=== PATIENT | female | born 1960 | race American Indian/Alaskan Native ===

== ENCOUNTER 2018-10-12 09:52 | Inpatient (IN) ==
[2018-10-08 12:00] LABS: Appearance,Urine CLEAR; Bacteria,Urine FEW /hpf (0); Bilirubin,Urine NEG (NEG); Color,Urine YELLOW; Glucose,Urine (UA) NEGATIVE (NEG); Leukocyte Esterase,Urine NEG /uL (NEG); Mucus,Urine MANY /hpf (0); Protein,Urine NEG (NEG); Specific Gravity,Urine 1.024 (1.000-1.035); Urine Blood 0.03 mg/dL (<0.03); Urine RBC 9 /hpf (0-1); Urine Squamous Epithelial Cell 4 /hpf (0-4); Urine WBC 1 /hpf (0-4)
[2018-10-08 12:27] LABS: Blood Urea Nitrogen 7 mg/dl (6-20)
[2018-10-08 12:31] LABS: Basophils # (Auto) 0.1 K/mcL (0.0-0.3); Basophils % (Auto) 0.8 % (0.0-2.0); Eosinophils # (Auto) 0.1 K/mcL (0.0-0.7); Eosinophils % (Auto) 1.5 % (0.0-7.0); Granulocytes % (Auto) 62.7 % (38.0-78.0); Lymphocytes # (Auto) 2.6 K/mcL (1.5-4.8); Lymphocytes % (Auto) 28.5 % (15.5-49.0); Mean Cell Volume 86.9 fL (80.0-100.0); Mean Corpuscular HGB Conc 32.6 g/dL (31.0-36.0); Monocytes # (Auto) 0.6 K/mcL (0.1-0.9); Monocytes % (Auto) 6.5 % (1.0-12.0); Platelet Count 253 K/mcL (140-440); RBC 4.83 M/mcL (4.00-5.20); Red Cell Distribution Width 13.3 % (11.5-14.5)
[2018-10-08 12:44] LABS: Hemoglobin A1C 6.1 % HGB (4.0-6.0)
[~2018-10-12 09:52] MED LIST: ACETAMINOPHEN 500 MG TABLET PO SCH; PREGABALIN 75 MG CAPSULE PO SCH; ceFAZolin 1 GM VIAL IV SCH; oxyCODONE 10 MG TAB.ER.12H PO SCH
[2018-10-12] MEDS ORDERED: DEXAMETHASONE 10 MG/ML VIAL IV ONE (12:15)
[2018-10-12] MEDS ORDERED: GLYCOPYRROLATE 0.2 MG/ML VIAL IV ONE (12:15)
[2018-10-12] MEDS ORDERED: TRANEXAMIC ACID 1,000 MG/10 ML VIAL IV ONE ×3 (12:15→14:11)
[2018-10-12] MEDS ORDERED: fentaNYL 250 MCG/5 ML VIAL IV ONE (12:15)
[2018-10-12] MEDS ORDERED: SUGAMMADEX SODIUM 200 MG/2 ML VIAL IV ONE (12:15)
[2018-10-12] MEDS ORDERED: ROCURONIUM 10 MG/ML ML IV ONE (12:15)
[2018-10-12] MEDS ORDERED: ONDANSETRON 4 MG/2 ML VIAL IV ONE (12:15)
[2018-10-12] MEDS ORDERED: MIDAZOLAM 5 MG/5 ML VIAL IV ONE (12:15)
[2018-10-12] MEDS ORDERED: SUCCINYLCHOLINE 20 MG/ML ML IV ONE (12:15)
[2018-10-12] MEDS ORDERED: KETAMINE 100 MG/ML ML IV ONE (12:15)
[2018-10-12] MEDS ORDERED: LIDOCAINE HCL/PF 100 MG/5 ML SYRINGE IV ONE (12:15)
[2018-10-12] MEDS ORDERED: HYDROmorphone 2 MG/ML VIAL IV ONE (12:15)
[2018-10-12] MEDS ORDERED: PROPOFOL 200 MG/20 ML VIAL IV ONE (12:15)
[2018-10-12] MEDS ORDERED: ESMOLOL 100 MG/10 ML VIAL IV ONE (12:15)
[2018-10-12] MEDS ORDERED: ROPIVACAINE HCL/PF 20 ML VIAL IJ ONE (12:15)
[2018-10-12] MEDS ORDERED: GENTAMICIN SULFATE 800 MG/20 ML VIAL IR ONE (12:48)
[2018-10-12] MEDS ORDERED: ONDANSETRON 4 MG/2 ML VIAL IV PRN ×2 (12:51→13:40)
[2018-10-12] MEDS ORDERED: METHOCARBAMOL 1,000 MG/10 ML VIAL IV PRN (12:51)
[2018-10-12] MEDS ORDERED: FLUMAZENIL 0.1 MG/ML ML IV PRN (12:51)
[2018-10-12] MEDS ORDERED: LACTATED RINGERS 250 ML IV PRN (12:51)
[2018-10-12] MEDS ORDERED: NALOXONE HCL 0.4 MG/ML VIAL IV PRN (12:51)
[2018-10-12] MEDS ORDERED: ACETAMINOPHEN 1,000 MG/100 ML BOTTLE IV ONE (12:51)
[2018-10-12] MEDS ORDERED: BENZOCAINE/MENTHOL 1 LOZENGE PO PRN ×2 (12:51→13:40)
[2018-10-12] MEDS ORDERED: IPRATROPIUM/ALBUTEROL 3 ML AMPUL.NEB NEB PRN (12:51)
[2018-10-12] MEDS ORDERED: MEPERIDINE 25 MG/ML SYRINGE IV PRN (12:51)
[2018-10-12] MEDS ORDERED: fentaNYL 100 MCG/2 ML VIAL IV PRN (12:51)
[2018-10-12] MEDS ORDERED: LACTATED RINGERS 1,000 ML IV SCH (13:00)
[2018-10-12] MEDS: 0.9 % SODIUM CHLORIDE 9 ML, KETOROLAC 30 MG, ROPIVACAINE HCL/PF 49.5 ML, EPINEPHrine 0.... IJ SCH (13:18)
[2018-10-12] MEDS ORDERED: FLEETS ADULT ENEMA PR PRN (13:40)
[2018-10-12] MEDS ORDERED: TEMAZEPAM 15 MG CAPSULE PO PRN (13:40)
[2018-10-12] MEDS ORDERED: oxyCODONE/APAP 5/325MG TABLET PO PRN (13:40)
[2018-10-12] MEDS ORDERED: ACETAMINOPHEN 325 MG TABLET PO PRN (13:40)
[2018-10-12] MEDS ORDERED: BISACODYL 10 MG SUPP.RECT PR PRN (13:40)
[2018-10-12] MEDS ORDERED: MAGNESIUM HYDROXIDE 30 ML ORAL.SUSP PO PRN (13:40)
[2018-10-12] MEDS ORDERED: HYDROmorphone 2 MG/ML VIAL IV PRN (13:40)
[2018-10-12] MEDS ORDERED: POLYETHYLENE GLYCOL 3350 17 GM PACKET PO PRN (13:40)
--- NOTE | 2018-10-12 13:40 | Brief Operative Note ---
Date of procedure: 10/12/18 Pre-op diagnosis: left shoulder rca and djd severe Procedure: left reverse tsa Grafts/Implants: Yes Anesthesia: GETA Complications: none Surgeon: Benson Luna Compensation And Benefits Advisor: Laz Clark Estimated blood loss (cc): 50 Specimens Removed/Pathology: none sent Condition: stable Disposition: PACU
--- NOTE | 2018-10-12 14:17 | Operative Note ---
DATE OF OPERATION: 10/12/2018 PREOPERATIVE DIAGNOSES: Left shoulder rotator cuff arthropathy, torn biceps, chronic torn rotator cuff. POSTOPERATIVE DIAGNOSES: Left shoulder rotator cuff arthropathy, torn biceps, chronic torn rotator cuff. PROCEDURE: Left reverse total shoulder. SURGEON: Benson Luna MD AIRPORT MAINTENANCE LABORER: Laz Clark PA-C ANESTHESIA: General LMA anesthesia. COMPLICATIONS: None. DESCRIPTION OF PROCEDURE: The patient was brought to the operating room and put to sleep with general LMA anesthesia. Once asleep, the patient had the left shoulder sterilely prepped and draped in the usual sterile fashion. A timeout was performed and we confirmed this as the operative site. Once we did this, we then placed Ioban over the skin. Preop antibiotics and tranexamic acid had been given. Initials recognized on this shoulder, we proceeded with the shoulder. After being sterilely prepped and draped we made a deltopectoral approach to the shoulder. Her anatomy was altered given her severe kyphosis. At this point we identified the deltopectoral interval and retracted the deltoid laterally, released the conjoined tendon from the capsule and retracted it medially. A Conklin retractor was placed over that the humeral head to retract the deltoid and then we released the subscap musculature. The biceps tendon had been torn. Any remnants of it were released. We irrigated thoroughly and then subluxed the humeral head anteriorly releasing the inferior capsule and protecting the axillary nerve at all times. We then released the capsule inferior on the glenoid neck, made our cutting guide at the junction of the humeral head anatomy at the anatomical neck region, cut at 20 degrees of retroversion and 135 degrees of inclination. Once done, we then placed a protective plate and subluxed the humerus posteriorly to the glenoid and performed a 360 degree capsular release and removal of the labrum around the glenoid. Once done, we then placed a central pin, reamed up to the size 36 and reamed to cancellous bone on the inferior 50%. We placed a 32 mm central screw with a 28 mm metaglene. A glenosphere measuring 36 mm with 2 mm of offset and 2 mm of eccentricity was placed. We irrigated thoroughly and tapped this into place. We then prepared the humerus, broaching up to the size 9 for a stem. We then trialed a size 9 and neutral poly. This seemed to fit very nicely, very stable through the full arc of motion. We irrigated thoroughly. At this point, we implanted a size 8 stem with a distal cement to countersink this up slightly to be able to countersink. We placed a standard thickness poly which was tapped into place after cutting the neck down to the level of the stem. We irrigated thoroughly and then reduced the humerus once more. This was very stable throughout the arc of motion. A small amount of cement was placed distally on the stem to keep it secured. We irrigated thoroughly. We then irrigated and injected the soft tissue with the post-inject formula for total joints. Once done, we then closed the deltopectoral interval with 2-0 Vicryl and closed the skin with 2-0 Vicryl and adhesive closure. The patient tolerated this well. She was placed in a regular Donjoy sling. RBH:arvind Job ID: [id number] Doc ID: [id number] Benson Luna MD
--- NOTE | 2018-10-12 15:57 | XRay Report ---
CLINICAL INFORMATION: Post-Op Total Shoulder COMPARISON: None. FINDINGS: Total shoulder prosthesis is anatomically aligned. Mild acromioclavicular degeneration noted. No osseous abnormality There is mild diffuse soft tissue swelling. IMPRESSION: Negative Interpreted and Authenticated by: Edil Odonnell 10/12/18
[2018-10-12] MEDS: 0.9 % SODIUM CHLORIDE 10 ML SYRINGE IV SCH ×2 (17:35→21:40)
[2018-10-12] MEDS: 0.45 % SODIUM CHLORIDE 1,000 ML IV SCH (17:58)
[2018-10-12] MEDS ORDERED: SENNOSIDES 1 TABLET PO SCH (21:00)
[2018-10-12] MEDS: ceFAZolin 1 GM VIAL IV SCH (21:30)
[2018-10-12] MEDS: DOCUSATE SODIUM 100 MG CAPSULE PO SCH (21:39)
[2018-10-13] MEDS: 0.45 % SODIUM CHLORIDE 1,000 ML IV SCH (02:06)
[2018-10-13] MEDS: ceFAZolin 1 GM VIAL IV SCH (05:41)
[2018-10-13] MEDS: 0.9 % SODIUM CHLORIDE 10 ML SYRINGE IV SCH (05:41)
--- NOTE | 2018-10-13 07:29 | Orthopedic Progress Note ---
Subjective Patient information: Note initiated : 10/13/18 at 7:28 am Service Date, if different from initiated Date: [] Patient: Aixa Diaz 58 y/o F admitted on 10/12/18 for Left Reverse Total Shoulder Arthroplasty. Chief Complaint: [Pt is stable this morning on post operative day 1 without any significant concerns or complaints. Patients vital signs have remained stable. Patients dressing is dry and is grossly intact from a neurovascular and motor standpoint. Patients 10 point ROS is otherwise negative. ] Objective Vital signs: Vital Signs Temp Pulse Resp BP Pulse Ox 10/13/18 04:32 92 10/13/18 03:36 97.7 F 78 12 115/75 94 10/12/18 23:09 97.9 F 84 12 123/86 94 10/12/18 19:17 97.7 F 93 H 12 111/79 94 10/12/18 17:31 142/82 97 10/12/18 17:00 136/81 97 10/12/18 16:30 132/67 99 10/12/18 16:15 129/77 99 10/12/18 16:00 154/83 98 10/12/18 15:45 163/97 100 10/12/18 15:30 152/91 100 10/12/18 15:20 98.1 F 114 H 23 H 168/83 97 10/12/18 15:05 97.5 F 114 H 13 150/84 94 10/12/18 14:50 97.7 F 121 H 21 171/91 96 10/12/18 14:35 97.7 F 129 H 21 153/82 96 10/12/18 14:20 97.7 F 105 H 11 L 141/75 99 10/12/18 14:05 103 H 11 L 140/80 99 10/12/18 14:00 97.7 F 97 H 20 136/74 99 10/12/18 12:00 98.1 F 114 H 23 H 168/83 97 10/12/18 09:52 98 F 70 16 100/70 97 Intake and Output 10/12/18 10/13/18 10/13/18 21:59 05:59 13:59 Intake Total 4026 706 5553 Output Total 150 675 Balance 1450 -325 1000 Intake: IV 1000 Sodium Chloride 0.45% 1,000 ml 1000 @ 100 mls/hr IV .Q10H TESSY Rx#: [id number] Oral 600 350 IV - Manual Only 1000 Output: Void Amount 675 Emesis 150 Other: Meal Dinner Ice cream Percent of Meal Consumed 100% 100% Feeding Ability Independent Independent Urine Appearance Clear Urine Color Straw Urine Odor Normal # Voids 1 Weight 220 lb 8 oz Intake & Output: Intake & Output 10/12/18 10/13/18 10/13/18 21:59 05:59 13:59 Intake Total 1375 440 2538 Output Total 150 675 Balance 1450 -325 1000 Weight 220 lb 8 oz Intake: IV 1000 Sodium Chloride 0.45% 1,000 ml 1000 @ 100 mls/hr IV .Q10H TESSY Rx#: [id number] Oral 600 350 IV - Manual Only 1000 Output: Void Amount 675 Emesis 150 Other: Meal Dinner Ice cream Percent of Meal Consumed 100% 100% Feeding Ability Independent Independent Urine Appearance Clear Urine Color Straw Urine Odor Normal # Voids 1 Incision: Yes healing Incision clean and dry: Yes Dressing: Yes clean Neurological exam IM: Yes motor sensory intact, Yes neurovascular intact Extremities exam IM: Yes neurovascular intact - Labs CBC & BMP: 10/08/18 09:39 10/08/18 09:39 Labs: 10/08/18 09:39 Hgb 13.7 Hct 42.0 Assessment and Plan (1) History of reverse total replacement of left shoulder joint The patient has been educated regarding dressing care, Physical Therapy recommendations, home exercises, restrictions, and follow up appointments. The patient has had all necessary DME prescribed. The patient has remained relatively stable during their hospital course. Leave Dermabond patch intact until followup Status: Acute
--- NOTE | 2018-10-13 07:32 | Discharge Summary ---
Ortho Discharge - TSA - Patient Instructions Diet: Regular Diet Activity: activity as tolerated, weight bearing as tolerated Total Shoulder Protocol: Leave immobilizer in place except for bathing and ROM. Abduction pillow. Continue to wear sling until seen by physician. Codman Pendulum : These exercises use momentum produced by your body to move your shoulder joint. Bend your knees and shift your weight to your front leg, then back, allowing your arm to swing in the same directions. Using the same technique, alternately shift your weight between your right and left legs, allowing your arm to swing from side to side. These exercises are also performed in counterclockwise and clockwise circular motions. Typically these exercises are performed several times per day, for a set number repetitions or minutes, such as 20 times in a row or 5 minutes at a time. Dressing Care: May shower in 2 days Patient Education: Shoulder Arthroscopy (DC) - Problem Maintenance (1) History of reverse total replacement of left shoulder joint Status: Acute - Follow Up Plan Follow Up Appointments: Laz Clark PA-C [Physician Viscose Cellar Worker] - 10/27/18 9:30 am Disposition: Home, Self-Care Prognosis: Good Rehab Potential: Good I certify that the patient requires SNF services: No Overall status at discharge: patient is progressing back to baseline - Orders For Discharge Prescriptions: Docusate Sodium [Colace] 100 mg PO BID #60 cap oxyCODONE/APAP [Percocet 5-325 mg] 1 - 2 tab PO Q4HP PRN #75 tab PRN Reason: Pain Level 3-6
[2018-10-13] MEDS: 0.9 % SODIUM CHLORIDE 9 ML, KETOROLAC 30 MG, ROPIVACAINE HCL/PF 49.5 ML, EPINEPHrine 0.... IJ SCH (07:43)
[2018-10-13] MEDS: DOCUSATE SODIUM 100 MG CAPSULE PO SCH (10:32)
== END 2018-10-13 11:13 | disposition home or self-care (01) | DRG 483 ==
LOC: MEDSUR 09:52
PROVIDERS: ADMIT Orthopaedic Surgery; ATTEND Orthopaedic Surgery